=== PATIENT | male | born 1935 | race Caucasian/White ===

== ENCOUNTER 2019-03-17 09:34 | Emergency (ER) | payer OTHER, MEDICARE ==
[2019-03-17] MEDS ORDERED: NA CHLORIDE 0.9% 500 ML ONE (10:09)
[2019-03-17 10:14] LABS: Absolute Lymphocytes (CBC) 0.8 K/uL (0.7-4.9); Basophils % 0.7 % (0-1.3); Hematocrit 31.8 % (39.6-49.0); Lymphocytes % 16.8 % (15.3-44.8); MPV 8.8 fL (7.6-11.3); RBC Red Blood Cell Count 3.68 M/uL (4.33-5.43)
[2019-03-17 10:20] LABS: Protime INR 1.02
[2019-03-17 10:36] LABS: Albumin 3.3 g/dL (3.4-5.0); Bilirubin Direct 0.2 mg/dL (0-0.2); Bilirubin Total 0.6 mg/dL (0.2-1.0); Protein, Total 6.4 g/dL (6.4-8.2)
--- NOTE | 2019-03-17 11:18 | RAD REPORT ---
EXAM DESCRIPTION: CT - Abdomen Pelvis W Contrast - 03/17/2019 10:54 am CLINICAL HISTORY: diarrhea x 1 week, rectal bleeding COMPARISON: CT study March 19, 2009 TECHNIQUE: Biphasic, helical CT imaging of the abdomen and pelvis was performed following 100 ml non -ionic IV contrast. No oral contrast given. All CT scans are performed using dose optimization technique as appropriate and may include automated exposure control or mA/KV adjustment according to patient size. FINDINGS: Lung base atelectasis with no acute lung base finding. No pericardial thickening or effusi on. The liver, spleen, and pancreas show no suspicious findings. Cholecystectomy clips are present. No bi liary tree dilatation. Renal function is symmetric. Dilatation of the pelvis, calices and proximal ureters noted bilaterally . No obstructing calculi. Dilatation extends to the mid ureter level. No obstructing mass seen. No no nobstructing calculi present. In the posterior upper pole right kidney there is a 17 millimeter area of decreased attenuation. There is some questionable enhancement within this mass. This does not meet simple cyst criteria. No similar finding in 2008. No pyelonephritis findings. No perinephric strandi ng. Partially filled urinary bladder shows an enlarged prostate projecting into the bladder base. No bladder calculi or bladder wall primary mass seen. No adrenal abnormalities. Decompressed stomach shows no gross abnormality. Prominence of the antrum is believed to be a perista lsis artifact. No small bowel dilatation. No appendicitis findings. Moderate stool volume is present in the transverse colon and sigmoid colon. Patient has prominent diverticulosis. There is a dilatatio n of the distal sigmoid colon immediately proximal to the rectosigmoid junction. There is thickened a nd irregular colon vincent. More distal rectal vincent along the posterior and left lateral margin are pr ominent. Mild stranding in the perirectal fat. A few small 8-11 mm perirectal lymph nodes are present . No bulky lymphadenopathy. No free air, free fluid or pneumatosis. No omental thickening. No suspicious bony findings. IMPRESSION: Suspected partially obstructing mass at the rectosigmoid junction. More distal posterior and left lateral rectal vincent are prominent as well. Sigmoid colon is mildly dilated and filled with stool immediately proximal to the suspected colon mas s. Mild stranding and small lymph nodes in the perirectal fat. There is stranding of the rectal vincent in to the perirectal fat. Suspected small 17 millimeter solid mass posterior upper pole right kidney. This is potentially a com plex cyst. This can be more fully evaluated depending on the outcome of the more urgent rectal findin g.
--- NOTE | 2019-03-17 11:44 | ER ---
Nurse's Notes [facility] Name: Gigi Honeycutt Age: 84 yrs Sex: Male : 1935 Arrival Date: 03/17/2019 Time: 09:37 Bed 4 Private MD: Diagnosis: Colon mass Presentation: 03/17 09:37 Presenting complaint: EMS states: From [facility], reports diarrhea x 1 week, ph caregiver noticed bloody toilet paper in restroom trash and called EMS, pt denies pain, dizziness, or weakness, +orthostatics w/ sitting BP 129/72 and standing 104/70, HR also increased from 68-98, 12 lead showed a-fib/a-flutter w/ rate <100. Transition of care: patient was not received from another setting of care. Onset of symptoms was March 17, 2019. Risk Assessment: Do you want to hurt yourself or someone else? Patient reports no desire to harm self or others. Initial Sepsis Screen: Does the patient meet any 2 criteria? No. Patient's initial sepsis screen is negative. Does the patient have a suspected source of infection? No. Patient's initial sepsis screen is negative. Care prior to arrival: IV initiated. 20 GA, in the left forearm. 09:37 Method Of Arrival: EMS: [facility] 09:37 Acuity: SADIA 3 ph Historical: - Allergies: 09:51 PENICILLINS; ph - Home Meds: 09:51 aspirin 81 mg Oral chew 1 tab once daily [Active]; cholestyramine (with sugar) 4 gram ph oral pwpk 2 packets nightly [Active]; citalopram 20 mg tab 1 tab once daily [Active]; clotrimazole-betamethasone 1-0.05 % Topical crea 2 times per day [Active]; dicyclomine 20 mg Oral tab 1 tab 3 times per day [Active]; Ferralet 90 Dual-Iron Delivery 90-1-12-50 vl-xy-fyi-mg oral tab daily [Active]; finasteride 5 mg Oral tab 1 tab once daily [Active]; glimepiride 4 mg Oral tab 2 tab once daily [Active]; magnesium oxide 241.3 mg Oral tab three times a day [Active]; omeprazole 40 mg Oral cpDR 1 cap once daily [Active]; Onglyza 5 mg oral tab 1 tab once daily [Active]; Probiotic Complex 25 billion cell -100 mg Oral cap daily [Active]; ranitidine HCl 150 mg Oral cap 1 cap once daily [Active]; tamsulosin 0.4 mg Oral cp24 1 cap once daily [Active]; tramadol 50 mg Oral tab 1 tab twice a day for PRN for pain [Active]; tramadol 50 mg Oral tab 0.5 tab 7 am daily [Active]; tramadol 50 mg Oral tab 1 tab 7 pm nightly [Active]; - PMHx: 09:51 Diabetes - NIDDM; Hypertension; Myocardial infarction; ph - PSHx: 09:51 Cholecystectomy; shoulder; ph - Immunization history:: Adult Immunizations up to date. - Social history:: Smoking status: Patient/guardian denies using tobacco. - Family history:: not pertinent. - Ebola Screening: : No symptoms or risks identified at this time. - Hospitalizations: : No recent hospitalization is reported. Screenin:52 Abuse screen: Denies threats or abuse. Denies injuries from another. Nutritional ph screening: No deficits noted. Tuberculosis screening: No symptoms or risk factors identified. Fall Risk None identified. Assessment: 09:53 General: Appears in no apparent distress. comfortable, slender, well groomed, Behavior ph is calm, cooperative, appropriate for age, Denies fever. Pain: Denies pain. Neuro: Level of Consciousness is awake, alert, obeys commands, Oriented to person, place, time, situation, Denies weakness dizziness. Cardiovascular: Denies chest pain, lightheadedness, nausea, shortness of breath, Capillary refill < 3 seconds Patient's skin is warm and dry. Rhythm is irregular. Respiratory: Airway is patent Respiratory effort is even, unlabored, Respiratory pattern is regular, symmetrical, Denies shortness of breath. GI: Abdomen is round non-distended, Reports diarrhea, rectal bleeding, Patient currently denies abdominal pain, nausea, vomiting. : No signs and/or symptoms were reported regarding the genitourinary system. Derm: Skin is intact, Skin is pink, warm \T\ dry. Musculoskeletal: Circulation, motion, and sensation intact. Range of motion: intact in all extremities. 10:37 Reassessment: Patient appears in no apparent distress at this time. Patient and/or ph family updated on plan of care and expected duration. Pain level reassessed. Patient is alert, oriented x 3, equal unlabored respirations, skin warm/dry/pink. Pt resting quietly, denies pain or nausea, family at bedside. 12:18 Reassessment: Patient appears in no apparent distress at this time. Patient and/or ph family updated on plan of care and expected duration. Pain level reassessed. Patient is alert, oriented x 3, equal unlabored respirations, skin warm/dry/pink. Pt d/c home w/ family. Vital Signs: 09:40 BP 144 / 61; Pulse 58; Resp 18; Temp 98.0; Pulse Ox 100% on R/A; Weight 83.91 kg; Pain ph 0/10; 10:40 BP 134 / 61; Pulse 62; Resp 18; Pulse Ox 100% on R/A; ph 11:45 BP 138 / 64; Pulse 61; Resp 18; Temp 97.8; Pulse Ox 99% on R/A; ph ED Course: 09:37 Patient arrived in ED. ph 09:37 Reese Johnson MD is Attending Physician. rn 09:40 Triage completed. ph 09:44 Radiology exam delayed due to lab results not completed at this time. (BUN/Creatinine). kw1 09:52 Arm band placed on Patient placed in an exam room, on a stretcher, on rn cardiac, ph on pulse oximetry. 09:52 Patient has correct armband on for positive identification. Placed in gown. Bed in low ph position. Call light in reach. Side rails up X2. demolition specialist on. Pulse ox on. NIBP on. Door closed. Noise minimized. Warm blanket given. Pillow given. Head of bed elevated. 09:54 Maintain EMS IV. Dressing intact. Good blood return noted. Site clean \T\ dry. Gauge \T\ ph site: 20 LFA. 10:12 Gabby Negro, TOPHER is Primary Nurse. ph 10:54 CT completed. Patient tolerated procedure well. Patient moved back from CT. kw1 10:55 CT Abd/Pelvis - IV Contrast Only In Process Unspecified. EDMS 12:19 No provider procedures requiring assistance completed. IV discontinued, intact, ph bleeding controlled, No redness/swelling at site. Pressure dressing applied. Administered Medications: 10:12 Drug: NS 0.9% 500 ml Route: IV; Rate: bolus; Site: left forearm; ph 12:21 Follow up: Response: No adverse reaction; IV Status: Completed infusion; IV Intake: ph 500ml Intake: 12:21 IV: 500ml; Total: 500ml. ph Outcome: 11:44 Discharge ordered by . rn 12:20 Discharged to home with family. ph 12:20 Condition: good 12:20 Discharge instructions given to family, Instructed on discharge instructions, follow up and referral plans. Demonstrated understanding of instructions, follow-up care. 12:21 Patient left the ED. ph Signatures: Dispatcher [employer] EDMS Reese Johnson MD MD rn Hall, Patricia, RN RN ph Wilhelm, Kimberly kw1
--- NOTE | 2019-03-17 11:45 | EDPHYS ---
Physician Documentation [facility] Name: Gigi Honeycutt Age: 84 yrs Sex: Male : 1935 Arrival Date: 03/17/2019 Time: 09:37 Bed 4 Private MD: ED Physician Reese Johnson HPI: 03/17 09:39 This 84 yrs old Male presents to ER via Unassigned with complaints of Rectal rn Bleeding. 09:39 The patient presents to the emergency department with bleeding from the rectum/anus, rn that is mild. Onset: The symptoms/episode began/occurred today. Modifying factors: The symptoms are alleviated by nothing, The symptoms are aggravated by nothing. It is unknown whether or not the patient has had similar symptoms in the past. Per report, patient with 1 week of non-bloody diarrhea, today caregiver noted small amount of blood when wiped and in stool, patient denies pain, denies lightheaded feeling or sob. No chest pain. No vomiting. No fever. EMS states that patient with orthostasis, BP dropped and HR increased 30 points when standing. Patient states feels fine.. Historical: - Allergies: 09:51 PENICILLINS; ph - Home Meds: 09:51 aspirin 81 mg Oral chew 1 tab once daily [Active]; cholestyramine (with sugar) 4 gram ph oral pwpk 2 packets nightly [Active]; citalopram 20 mg tab 1 tab once daily [Active]; clotrimazole-betamethasone 1-0.05 % Topical crea 2 times per day [Active]; dicyclomine 20 mg Oral tab 1 tab 3 times per day [Active]; Ferralet 90 Dual-Iron Delivery 90-1-12-50 ui-ni-pey-mg oral tab daily [Active]; finasteride 5 mg Oral tab 1 tab once daily [Active]; glimepiride 4 mg Oral tab 2 tab once daily [Active]; magnesium oxide 241.3 mg Oral tab three times a day [Active]; omeprazole 40 mg Oral cpDR 1 cap once daily [Active]; Onglyza 5 mg oral tab 1 tab once daily [Active]; Probiotic Complex 25 billion cell -100 mg Oral cap daily [Active]; ranitidine HCl 150 mg Oral cap 1 cap once daily [Active]; tamsulosin 0.4 mg Oral cp24 1 cap once daily [Active]; tramadol 50 mg Oral tab 1 tab twice a day for PRN for pain [Active]; tramadol 50 mg Oral tab 0.5 tab 7 am daily [Active]; tramadol 50 mg Oral tab 1 tab 7 pm nightly [Active]; - PMHx: 09:51 Diabetes - NIDDM; Hypertension; Myocardial infarction; ph - PSHx: 09:51 Cholecystectomy; shoulder; ph - Immunization history:: Adult Immunizations up to date. - Social history:: Smoking status: Patient/guardian denies using tobacco. - Family history:: not pertinent. - Ebola Screening: : No symptoms or risks identified at this time. - Hospitalizations: : No recent hospitalization is reported. ROS: 09:39 Constitutional: Negative for fever, chills, and weight loss, Eyes: Negative for injury, rn pain, redness, and discharge, Neck: Negative for injury, pain, and swelling, Cardiovascular: Negative for chest pain, palpitations, and edema, Respiratory: Negative for shortness of breath, cough, wheezing, and pleuritic chest pain, Abdomen/GI: Negative for abdominal pain, nausea, vomiting, and constipation, Back: Negative for injury and pain, : Negative for injury, bleeding, discharge, and swelling, MS/Extremity: Negative for injury and deformity, Skin: Negative for injury, rash, and discoloration, Neuro: Negative for headache, weakness, numbness, tingling, and seizure. Exam: 09:39 Constitutional: This is a well developed, well nourished patient who is awake, alert, rn and in no acute distress. Head/Face: Normocephalic, atraumatic. Eyes: Pupils equal round and reactive to light, extra-ocular motions intact. Lids and lashes normal. Conjunctiva and sclera are non-icteric and not injected. Cornea within normal limits. Periorbital areas with no swelling, redness, or edema. ENT: MMM Cardiovascular: Irregular, no murmur, normal rate Respiratory: No increased work of breathing, no retractions or nasal flaring. Abdomen/GI: soft, non-tender. No gross stool on rectal exam, +2 small external hemorrhoids noted. MS/ Extremity: Pulses equal, no cyanosis. Neurovascular intact. Full, normal range of motion. Equal circumference. Neuro: Awake and alert, GCS 15, oriented to person, place, time, and situation. Motor strength 5/5 in all extremities. Sensory grossly intact. Cerebellar exam normal. Vital Signs: 09:40 BP 144 / 61; Pulse 58; Resp 18; Temp 98.0; Pulse Ox 100% on R/A; Weight 83.91 kg; Pain ph 0/10; 10:40 BP 134 / 61; Pulse 62; Resp 18; Pulse Ox 100% on R/A; ph 11:45 BP 138 / 64; Pulse 61; Resp 18; Temp 97.8; Pulse Ox 99% on R/A; ph MDM: 09:37 Patient medically screened. rn 11:41 Differential diagnosis: hemorrhoids, rectal mass. Data reviewed: vital signs, nurses rn notes, lab test result(s), radiologic studies, CT scan, and as a result, I will discharge patient. Counseling: I had a detailed discussion with the patient and/or guardian regarding: the historical points, exam findings, and any diagnostic results supporting the discharge/admit diagnosis, lab results, radiology results, the need for outpatient follow up, to return to the emergency department if symptoms worsen or persist or if there are any questions or concerns that arise at home. Special discussion: Based on the patient's Hx, exam, and Dx evaluation, there is no indication for emergent surgery or inpatient Tx. It is understood by the patient/guardian that if the Sx's persist or worsen they need to return immediately for re-evaluation. I discussed with the patient/guardian in detail that at this point there is no indication for admission to the hospital. It is understood, however, that if the symptoms persist or worsen the patient needs to return immediately for re-evaluation. Based on the history and exam findings, there is no indication for further emergent testing or inpatient evaluation. I discussed with the patient/guardian the need to see the orthotist for further evaluation of the symptoms. I discussed with the patient/guardian the need to see the general surgeon for further evaluation of the symptoms. ED course: Pt with likely rectal mass on CT scan, normal vitals, no longer on blood thinner. Partially obstructing mass explains chronic diarrhea/loose stool. Sleeping comfortably. Gave family results and recommendations. Consulted with Dr. Garzon, states ok for outpt w/u and to have them f/u in his clinic this week.. 03/17 09:38 Order name: Basic Metabolic Panel; Complete Time: 10:39 rn 03/17 09:38 Order name: CBC with Diff; Complete Time: 10:39 rn 03/17 09:38 Order name: Creatinine for Radiology; Complete Time: 10:39 rn 03/17 09:38 Order name: Hepatic Function; Complete Time: 10:39 rn 03/17 09:38 Order name: Lipase; Complete Time: 10:39 rn 03/17 09:39 Order name: Protime (+inr); Complete Time: 10:39 rn 03/17 09:38 Order name: IV Saline Lock; Complete Time: 09:55 rn 03/17 09:38 Order name: Labs collected and sent; Complete Time: 09:55 rn 03/17 09:38 Order name: CT Abd/Pelvis - IV Contrast Only; Complete Time: 11:23 rn 03/17 09:38 Order name: EKG; Complete Time: 09:40 rn 03/17 09:38 Order name: EKG - Nurse/Tech; Complete Time: 09:55 rn 03/17 09:39 Order name: Ptt, Activated; Complete Time: 10:39 rn Administered Medications: 10:12 Drug: NS 0.9% 500 ml Route: IV; Rate: bolus; Site: left forearm; ph 12:21 Follow up: Response: No adverse reaction; IV Status: Completed infusion; IV Intake: ph 500ml Disposition: 03/17/19 11:44 Discharged to Home. Impression: Colon mass. - Condition is Stable. - Discharge Instructions: Colon Mass, Adult. - Medication Reconciliation Form, Thank You Letter, Antibiotic Education, Prescription Opioid Use form. - Follow up: Private Physician; When: As needed; Reason: Recheck today's complaints, Re-evaluation by your physician. - Problem is an ongoing problem. - Symptoms are unchanged. Signatures: Dispatcher [employer] EDMS Reese Johnson MD MD rn Hall, Patricia, RN RN ph Corrections: (The following items were deleted from the chart) 11:16 09:39 Constitutional: This is a well developed, well nourished patient who is awake, rn alert, and in no acute distress. Head/Face: Normocephalic, atraumatic. Eyes: Pupils equal round and reactive to light, extra-ocular motions intact. Lids and lashes normal. Conjunctiva and sclera are non-icteric and not injected. Cornea within normal limits. Periorbital areas with no swelling, redness, or edema. ENT: MMM Cardiovascular: Irregular, no murmur, normal rate Respiratory: No increased work of breathing, no retractions or nasal flaring. Abdomen/GI: soft, non-tender MS/ Extremity: Pulses equal, no cyanosis. Neurovascular intact. Full, normal range of motion. Equal circumference. Neuro: Awake and alert, GCS 15, oriented to person, place, time, and situation. Motor strength 5/5 in all extremities. Sensory grossly intact. Cerebellar exam normal. rn 12:21 11:44 03/17/2019 11:44 Discharged to Home. Impression: Colon mass. Condition is Stable. ph Forms are Medication Reconciliation Form, Thank You Letter, Antibiotic Education, Prescription Opioid Use. Follow up: Private Physician; When: As needed; Reason: Recheck today's complaints, Re-evaluation by your physician. Problem is an ongoing problem. Symptoms are unchanged. rn
[2019-03-17 13:15] VITALS: BP 138/64; TEMP 97.8; O2SAT 99
--- NOTE | 2019-03-17 15:33 | EKG ---
Test Date: 2019-03-17 Test Time: 09:47:29 Installer Inspector Final: MARLEEN MEASUREMENT RESULTS: Intervals: Rate: 62 VA: QRSD: 140 QT: 468 QTc: 475 Baxter: P: 82 VA: QRS: -11 T: 40 INTERPRETIVE STATEMENTS: Atrial flutter with variable AV block Right bundle branch block Abnormal ECG Compared to ECG 09/09/2016 12:20:21 Sinus rhythm no longer present Sinus arrhythmia no longer present Atrial premature complex(es) no longer present First degree AV block no longer present Myocardial infarct finding no longer present Electronically Signed On 03-17-19 15:32:46 CDT by Adam Rosales
== END 2019-03-17 12:21 | disposition home or self-care (01) ==
LOC: ER 09:34
DX: K63.89 Other specified diseases of intestine (principal); I10 Essential (primary) hypertension; E11.9 Type 2 diabetes mellitus without complications; I25.2 Old myocardial infarction; Z79.82 Long term (current) use of aspirin; Z88.0 Allergy status to penicillin
CPT/HCPCS: 96361; 93005; 85025; 80048; 36415; 85610; 80076; 85730; 83690; 74177; 96360; 99285; Q9967

== ENCOUNTER 2019-03-27 08:49 | Day surgery (SDC) | payer OTHER, MEDICARE ==
--- OUTSIDE RECORDS SUMMARY | 2019-03-27 08:51 | XMS REPORT | Clinical Summary ---
:1935 Author Organization [facility] Address [address] [place] [address] Care Team Providers Name Role Phone Nas Garzon MD Primary Care Provider Allergies No Known Allergies Medications Medication Sig Dispensed Refills Start Date End Date Status aspirin (ECOTRIN) 81 MG Take 81 mg by 0 Active enteric coated tablet mouth daily. cholestyramine Take 1 packet by 0 Active (QUESTRAN) 4 gram mouth 3 (three) packet times a day with meals. citalopram (CeleXA) 20 Take 20 mg by 0 Active MG tablet mouth daily. clotrimazole-betamethas Apply topically 2 0 Active one (LOTRISONE) 1-0.05 (two) times a % cream day. dicyclomine (BENTYL) 20 Take 20 mg by 0 Active mg tablet mouth 4 (four) times a day. finasteride (PROSCAR) 5 Take 5 mg by 0 Active mg tablet mouth daily. glimepiride (AMARYL) 4 Take 4 mg by 0 Active MG tablet mouth daily before breakfast. magnesium oxide 250 mg Take 250 mg by 0 Active magnesium tablet mouth daily. magnesium hydroxide 400 Take by mouth 0 Active mg/5 mL suspension once. omeprazole (PriLOSEC) Take 20 mg by 0 Active 20 MG capsule mouth daily. sAXagliptin (ONGLYZA) 5 Take 5 mg by 0 Active mg tablet mouth daily. tamsulosin (FLOMAX) 0.4 Take 0.4 mg by 0 Active mg capsule mouth daily with dinner. traMADol (ULTRAM) 50 mg Take 50 mg by 0 Active tabletIndications: mouth every 6 Acute Pain (six) hours as needed for moderate pain .Acute Pain. Active Problems No known active problems Encounters Date Type Specialty Care Team Description 03/20/2019 Hospital Encounter Radiology Devan Sheppard MD 03/20/2019 Office Visit General Surgery Devan Sheppard Rectal cancer (HCC) MD Yony (Primary Dx) after 03/26/2018 Family History Medical History Relation Name Comments Heart disease Mother Relation Name Status Comments Mother Social History Tobacco Use Types Packs/Day Years Used Date Never Assessed Sex Assigned at Date Recorded Not on file Job Start Date Occupation Industry Not on file Not on file Not on file Travel History Travel Start Travel End No recent travel history available. Last Filed Vital Signs Vital Sign Reading Time Taken Comments Blood Pressure 134/63 03/20/2019 11:57 AM CDT Pulse 63 03/20/2019 11:57 AM CDT Temperature - - Respiratory Rate - - Oxygen Saturation - - Inhaled Oxygen Concentration - - Weight - - Height - - Body Mass Index - - Plan of Treatment Health Maintenance Due Date Last Done Comments SHINGLES VACCINES (#1) 1983 65+ PNEUMOCOCCAL VACCINE (1 of 2 - PCV13) 1998 INFLUENZA VACCINE 02/08/2019 Procedures Procedure Name Priority Date/Time Associated Diagnosis Comments CT ABD/PELVIC Routine 03/17/2019 10:42 AM Results for this EXTERNAL STUDY CDT procedure are in the results section. after 03/26/[address] Abd/Pelvic External Study (03/17/2019 10:42 AM CDT) Specimen Narrative Performed At This exam was not acquired at a Muslim facility and has not been RADIANT interpreted by a Muslim Provider.The exam was imported into our imaging system for comparisons purposes. Performing Organization Address City/State/Zipcode Phone Number [employer] [address] [place] [address] after 03/26/2018 Insurance Payer Benefit Plan / Subscriber ID Effective Dates Phone Address Type Group MEDICARE MEDICARE PART A xxxxxxxxxxx 1998-Present [place], [place] Medicare AND B AARP AARP SUPPLEMENT xxxxxxxxxx 2014-Present Commercial Advance Directives For more information, please contact: [phone] Type Date Recorded Patient Consumer Insight Analyst Explanation Advance Directives, Living Will and Medical Power of Digital Performance Analyst
[2019-03-27] MEDS ORDERED: NA CHLORIDE 0.9% 1,000 ML ONE (10:38)
[2019-03-27] MEDS ORDERED: LIDOCAINE 1% MPF 5 ML VIAL ONE (12:33)
[2019-03-27] MEDS ORDERED: PROPOFOL 200 MG/20 ML VIAL IV ONE (12:33)
--- NOTE | 2019-03-27 12:52 | ENDO RPT ---
[address], [address] FLEXIBLE SIGMOIDOSCOPY PROCEDURE REPORT EXAM DATE: 03/27/2019 PATIENT NAME: Gigi Honeycutt MR #: [id number] BIRTHDATE: 1935 ATTENDING: Basil Jolly Dr STATUS: outpatient OVERLOCK SLEEVE SETTER: Davis Rizvi RN, Beverley Cook, and Ondina Contreras RN INDICATIONS: The patient is a 84 yr old Male here for a colonoscopy due to abnormal barium enema showed mass, anemia, hematochezia, and unexplained diarrhea PROCEDURE PERFORMED: Flexible Sigmoidoscopy with biopsy MEDICATIONS: Per Anesthesia. ESTIMATED BLOOD LOSS: None CONSENT: The patient understands the risks and benefits of the procedure and understands that these risks include, but are not limited to: sedation, allergic reaction, infection, perforation and/or bleeding. Alternative means of evaluation and treatment include, among others: physical exam, x-rays, and/or surgical intervention. The patient elects to proceed with this endoscopic procedure. DESCRIPTION OF PROCEDURE: During intra-op preparation period all mechanical medical equipment was checked for proper function. Hand hygiene and appropriate measures for infection prevention was taken. After the risks, benefits and alternatives of the procedure were thoroughly explained, Informed consent was verified, confirmed and timeout was successfully executed by the treatment team. A digital rectal exam was performed and revealed revealed an enlarged prostate. The EC-[id number] ([id number]) endoscope was introduced through the anus and advanced to the rectum. The prep was The quality of the prep was poor.. The instrument was then slowly withdrawn as the colon was fully examined. A circumferential near obstructing friable mass was found in the rectum, 10 cm from the anal verge. With jumbo forceps, biopsy was obtained and sent to pathology. Multiple biopsies were obtained and sent to pathology. Retroflexion not performed. The scope was then completely withdrawn from the patient and the procedure terminated. ADVERSE EVENTS: There were no complications. IMPRESSIONS: Circumferential near obstructing friable mass in the rectum, 10 cm from the anal verge, s/p biopsies RECOMMENDATIONS: 1. await biopsy results 2. follow-up: GI clinic 1 week(s) RECALL: Basil Jolly Dr eSigned: Basil Jolly Dr 03/27/2019 12:52 PM cc: Nas Garzon and Devan Sheppard CPT CODES: ICD9 CODES: PATIENT NAME: Gigi Honeycutt MR#: [id number]
[2019-03-27 15:32] VITALS: BP 133/57; TEMP 97.3; O2SAT 100
== END 2019-03-27 13:47 | disposition home or self-care (01) ==
LOC: DS 08:49
PROVIDERS: ATTEND Internal Medicine Gastroenterology
PROC: 0DBP8ZX Excision of Rectum, Via Natural or Artificial Opening Endoscopic, Diagnostic (ICD-10-PCS; principal; 2019-03-27 13:45)
DX: C20 Malignant neoplasm of rectum (principal); D64.9 Anemia, unspecified; E11.9 Type 2 diabetes mellitus without complications; K21.9 Gastro-esophageal reflux disease without esophagitis; E73.9 Lactose intolerance, unspecified; I25.10 Atherosclerotic heart disease of native coronary artery without angina pectoris; M19.90 Unspecified osteoarthritis, unspecified site; I25.2 Old myocardial infarction; Z88.0 Allergy status to penicillin; Z85.72 Personal history of non-Hodgkin lymphomas; Z86.73 Personal history of transient ischemic attack (TIA), and cerebral infarction without residual deficits; Z87.891 Personal history of nicotine dependence; Z90.49 Acquired absence of other specified parts of digestive tract; Z80.49 Family history of malignant neoplasm of other genital organs; Z82.49 Family history of ischemic heart disease and other diseases of the circulatory system
CPT/HCPCS: 82962; 88305; 45331; J2704; J7030